=== PATIENT | male | born 1965 | race Caucasian/White ===

== ENCOUNTER 2021-10-11 11:06 | Emergency (ER) | payer OTHER, SELFPAY ==
[2021-10-11 11:38] VITALS: BP 154/92; PULSE 84; RESP 18; TEMP 36.7; O2SAT 95; BMI 44.4
[2021-10-11 11:57] LABS: MANUAL DIFF FLAG NO
[2021-10-11 11:58] LABS: Basophils Percent Auto 0.4 % (0-2); Eosinophils Absolute Auto 0.1 X10*3/uL (0.0-0.4); Eosinophils Percent Auto 0.8 % (0-4); Hematocrit 46.2 % (42.0-52.0); Imm Gran Abs Auto 0.02 X10*3/uL (0.00-0.03); Imm Gran Pct Auto 0.3 % (0.0-0.4); Lymphocytes Absolute Auto 1.4 X10*3/uL (1.2-4.9); Lymphocytes Percent Auto 18.6 % (20-40); Mean Corpuscular HGB Conc 34.6 g/dl (31.0-36.0); Mean Corpuscular Hemoglobin 32.4 pg (27.0-33.0); Mean Corpuscular Volume 93.5 fL (80.0-98.0); Mean Platelet Volume 9.3 fL (9.4-12.4); Monocytes Absolute Auto 0.6 X10*3/uL (0.1-1.2); Neutrophils Absolute Auto 5.5 x10*3/uL (2.0-8.3); Neutrophils Percent Auto 71.9 % (45-73); Platelet Count 264 X10*3/uL (160-400); Red Blood Count 4.94 X10*6/uL (4.60-5.80); Red Cell Distribution Width 12.1 % (11.0-16.0); White Blood Count 7.6 X10*3/uL (4.8-10.8)
[2021-10-11 12:15] LABS: Alanine Aminotransferase 15 U/L (0-40); Albumin Level 4.2 g/dL (3.5-5.0); Alkaline Phosphatase 90 U/L (39-117); Anion Gap 12 (12-20); Aspartate Amino Transferase 15 U/L (5-37); Bilirubin Total 1.1 mg/dL (0.0-1.0); Blood Urea Nitrogen 10 mg/dL (9-16); Calcium 9.5 mg/dL (8.4-10.2); Carbon Dioxide 28 mmol/L (22-29); Chloride 105 mmol/L (96-108); Creatinine Clr Calc Pharmacy 145.8; Estimated Glomerular Filt Rate > 60; Glucose Random 120 mg/dL (60-115); Potassium 4.2 mmol/L (3.3-5.1); Sodium 141 mmol/L (135-145)
--- NOTE | 2021-10-11 12:26 | ED_ITS ---
HPI - Abdominal Pain General Chief Complaint: Abdominal Pain Stated Complaint: Swollen prostate Time Seen by Provider: 10/11/21 12:24 Source: patient Mode of arrival: ambulatory Limitations: no limitations History of Present Illness HPI narrative: Patient unable to urinate, has pressure but cant pee. patient has not had any over the counter medications. MD elicited complaint: other (pelvic pain) Onset (ago): day(s) Pain Consistency: constant Location: RLQ, LLQ and suprapubic Severity: mild Related Data Previous Rx's Medication Instructions Recorded tamsulosin 0.4 mg capsule (Flomax) 0.4 mg PO BEDTIME #30 caps 10/11/21 Allergies Allergy/AdvReac Type Severity Reaction Status Date / Time No Known Allergies Allergy Verified 10/11/21 11:38 PMFSH Social History Social History Advance Directives: No Advance Directives Information Provided: Yes Physical Exam ED Vital Signs: Vital Signs - 24 hr 10/11/21 11:38 Temperature 98.0 F Pulse Rate 84 Respiratory Rate 18 Blood Pressure 154/92 H Pulse Oximetry 95 Oxygen Delivery Method Room Air BMI result Body Mass Index 44.4 Course Reevaluation(s) Reevaluation #1: 400ml of urine removed will dc on flomax and chambers Time: 14:33 MDM - Abdominal Pain Lab Data Result diagrams: 10/11/21 11:54 10/11/21 11:54 Labs: Lab Results 10/11/21 10/11/21 10/11/21 Range/Units 11:54 11:54 13:21 WBC 7.6 (4.8-10.8) X10*3/uL RBC 4.94 (4.60-5.80) X10*6/uL Hgb 16.0 (14.0-18.0) g/dl Hct 46.2 (42.0-52.0) % MCV 93.5 (80.0-98.0) fL MCH 32.4 (27.0-33.0) pg MCHC 34.6 (31.0-36.0) g/dl RDW 12.1 (11.0-16.0) % Plt Count 264 (160-400) X10*3/uL MPV 9.3 L (9.4-12.4) fL Immature Gran % (Auto) 0.3 (0.0-0.4) % Neut % (Auto) 71.9 (45-73) % Lymph % (Auto) 18.6 L (20-40) % [place] % (Auto) 8.0 (2-11) % Eos % (Auto) 0.8 (0-4) % Baso % (Auto) 0.4 (0-2) % Lymph # (Auto) 1.4 (1.2-4.9) X10*3/uL [place] # (Auto) 0.6 (0.1-1.2) X10*3/uL Eos # (Auto) 0.1 (0.0-0.4) X10*3/uL Baso # (Auto) 0.0 (0.0-0.2) X10*3/uL Abs Immat Gran (auto) 0.02 (0.00-0.03) X10*3/uL Absolute Neuts (auto) 5.5 (2.0-8.3) x10*3/uL Absolute Nucleated RBC 0.000 (0.0-0.012) X10*3/uL Nucleated RBC % (auto) 0.0 (0.0-0.2) /100WBC Sodium 141 (135-145) mmol/L Potassium 4.2 (3.3-5.1) mmol/L Chloride 105 (96-108) mmol/L Carbon Dioxide 28 (22-29) mmol/L Anion Gap 12 (12-20) BUN 10 (9-16) mg/dL Creatinine 0.81 (0.5-1.4) mg/dL Estim Creat Clear Calc 145.8 Estimated GFR > 60 Random Glucose 120 H (60-115) mg/dL Calcium 9.5 (8.4-10.2) mg/dL Total Bilirubin 1.1 H (0.0-1.0) mg/dL AST 15 (5-37) U/L ALT 15 (0-40) U/L Alkaline Phosphatase 90 (39-117) U/L Total Protein 7.0 (6.5-8.0) g/dL Albumin 4.2 (3.5-5.0) g/dL Urine Color YELLOW Urine Appearance CLEAR Urine pH 6.5 (5.0-8.0) Ur Specific [place] 1.015 (1.005-1.025) Urine Protein NEG (NEG-TRACE) MG/DL Urine Glucose (UA) NEG (NEG) MG/DL Urine Ketones NEG (NEG) MG/DL Urine Blood 3+ H (NEG) Urine Nitrite NEG (NEG) Ur Leukocyte Esterase NEG (NEG) Urine RBC 30-49 H (0) /HPF Urine WBC 0 (0-4) /HPF Ur Squamous Epith Cells NONE /LPF Urine Bacteria NONE /LPF Discharge Plan Discharge Clinical Impression: Acute urinary retention Patient Disposition: Home, Self-Care Instructions: Urinary Retention in Men (ED), Chambers Catheter Placement and Care (ED) Prescriptions: New tamsulosin [Flomax] 0.4 mg capsule 0.4 mg PO BEDTIME Qty: 30 0RF Referrals: Rommel Agosto MD [Physician] - 1 week
[2021-10-11] MEDS: Tamsulosin HCL 0.4 MG CAPSULE PO (12:42)
[2021-10-11 13:34] LABS: Appearance Urine CLEAR; Color Urine YELLOW; Glucose Urine UA NEG (NEG); Leukocyte Esterase Urine NEG (NEG); Nitrite Urine NEG (NEG); PH 6.5 (5.0-8.0); Specific Gravity - Urine 1.015 (1.005-1.025); UACC Culture Trigger NO; Urine Blood 3+ (NEG); Urine Ketones NEG (NEG); Urine Protein NEG (NEG-TRACE)
[2021-10-11 14:12] LABS: WBC Urine 0 /HPF (0-4)
[2021-10-11 14:13] LABS: RBC Urine 30-49 /HPF (0)
== END 2021-10-11 15:02 | disposition home or self-care (01) ==
PROVIDERS: Emergency Provider Emergency Medicine
DX: R33.9 Retention of urine, unspecified (principal); R10.2 Pelvic and perineal pain
CPT/HCPCS: 36415; 51702; 80053; 81001; 85025; 99283; 99284

== ENCOUNTER → 2021-10-20 09:36 | Outpatient (BNVA) | payer OTHER, SELFPAY | PROVIDERS: Visit Provider Urology | DX: R33.8 Other retention of urine (principal) | CPT/HCPCS: 51700; 51798 ==

== ENCOUNTER 2021-10-23 11:46 | Inpatient (IN) | payer OTHER, SELFPAY ==
--- NOTE | ~2021-10-23 | XR_ITS ---
EXAMINATION: PORTABLE CHEST 1 VIEW CLINICAL INFORMATION: chest pain . COMPARISON: No recent pertinent prior studies are available for comparison. TECHNIQUE: Portable frontal view of the chest was obtained. FINDINGS: The lungs are well expanded. No focal infiltrate, effusion, edema, or pneumothorax. Cardiac and mediastinal silhouettes are within normal limits for technique. No acute bony abnormality seen. Degenerative changes in the spine and shoulders. XR/XR chest 1V IMPRESSION: No evidence of acute disease.
--- NOTE | 2021-10-23 11:47 | ECG_ITS ---
Test Reason : chest pain Blood Pressure : / mmHG Vent. Rate : 093 BPM Atrial Rate : 093 BPM P-R Int : 160 ms QRS Dur : 102 ms QT Int : 376 ms P-R-T Axes : 060 001 041 degrees QTc Int : 467 ms Normal sinus rhythm Normal ECG No previous ECGs available Referred By: Generic ED Physician Electronically Signed By:MONICA OLSON
[2021-10-23 11:52] VITALS: BP 165/77; PULSE 93; RESP 18; TEMP 36.5; O2SAT 96; BMI 45.1
[2021-10-23 12:12] LABS: Basophils Absolute Auto 0.1 X10*3/uL (0.0-0.2); Basophils Percent Auto 0.7 % (0-2); Eosinophils Absolute Auto 0.1 X10*3/uL (0.0-0.4); Eosinophils Percent Auto 1.2 % (0-4); Hematocrit 43.3 % (42.0-52.0); Hemoglobin 15.4 g/dl (14.0-18.0); Imm Gran Abs Auto 0.04 X10*3/uL (0.00-0.03); Imm Gran Pct Auto 0.6 % (0.0-0.4); Lymphocytes Absolute Auto 1.7 X10*3/uL (1.2-4.9); Lymphocytes Percent Auto 24.2 % (20-40); MANUAL DIFF FLAG NO; Mean Corpuscular HGB Conc 35.6 g/dl (31.0-36.0); Mean Corpuscular Hemoglobin 32.9 pg (27.0-33.0); Mean Corpuscular Volume 92.5 fL (80.0-98.0); Mean Platelet Volume 9.2 fL (9.4-12.4); Monocytes Absolute Auto 0.5 X10*3/uL (0.1-1.2); Monocytes Percent Auto 7.9 % (2-11); Neutrophils Absolute Auto 4.5 x10*3/uL (2.0-8.3); Neutrophils Percent Auto 65.4 % (45-73); Platelet Count 301 X10*3/uL (160-400); Red Blood Count 4.68 X10*6/uL (4.60-5.80); Red Cell Distribution Width 11.8 % (11.0-16.0); White Blood Count 6.9 X10*3/uL (4.8-10.8)
[2021-10-23 12:31] LABS: Troponin-I High Sensitivity 47.1 ng/L (<3.5-35.0)
[2021-10-23 12:32] LABS: Alanine Aminotransferase 14 U/L (0-40); Albumin Level 4.2 g/dL (3.5-5.0); Alkaline Phosphatase 98 U/L (39-117); Anion Gap 14 (12-20); Aspartate Amino Transferase 12 U/L (5-37); Bilirubin Total 0.5 mg/dL (0.0-1.0); Blood Urea Nitrogen 11 mg/dL (9-16); Carbon Dioxide 25 mmol/L (22-29); Chloride 104 mmol/L (96-108); Creatinine Clr Calc Pharmacy 143.5; Estimated Glomerular Filt Rate > 60; Glucose Random 149 mg/dL (60-115); Potassium 3.6 mmol/L (3.3-5.1); Sodium 139 mmol/L (135-145); Total Protein 7.2 g/dL (6.5-8.0)
--- NOTE | 2021-10-23 13:58 | ECG_ITS ---
Test Reason : CHEST PAIN Blood Pressure : / mmHG Vent. Rate : 080 BPM Atrial Rate : 080 BPM P-R Int : 168 ms QRS Dur : 098 ms QT Int : 384 ms P-R-T Axes : 063 011 037 degrees QTc Int : 442 ms Normal sinus rhythm Normal ECG When compared with ECG of 23-OCT-2021 11:55, No significant change was found Referred By: Chance Carrasquillo Electronically Signed By:MONICA OLSON
--- NOTE | 2021-10-23 13:59 | ED_ITS ---
HPI - Chest Pain General Chief Complaint: Chest Pain Stated Complaint: chest pain, sweats, numb throat Time Seen by Provider: 10/23/21 13:54 Source: patient Mode of arrival: ambulatory Limitations: no limitations History of Present Illness HPI narrative: this is a 56 years old male presented to the emergency department with a chief complaint of chest pain x3 hours pain is radiated to neck ARM has history of borderline diabetes. MD complaint: chest pain Onset (ago): hour(s) (3) Timing of current episode: constant Prior episodes: No Onset: during rest Pain location: substernal Pain radiation: right arm and neck Relieving factors: nothing Context: recent illness Related Data Home Medications Medication Instructions Recorded Confirmed alprazolam 0.25 mg tablet 0.25 mg PO BEDTIME PRN Sleep 10/23/21 10/23/21 atenolol 25 mg tablet 25 mg PO DAILY 10/23/21 10/23/21 citalopram 40 mg tablet 20 mg PO BID 10/23/21 10/23/21 simvastatin 10 mg tablet 10 mg PO DAILY 10/23/21 10/23/21 Previous Rx's Medication Instructions Recorded tamsulosin 0.4 mg capsule (Flomax) 0.4 mg PO BEDTIME #30 caps 10/20/21 Allergies Allergy/AdvReac Type Severity Reaction Status Date / Time No Known Allergies Allergy Verified 10/11/21 11:38 Review of Systems ENT: Reports system reviewed and no additional complaints, except as documented Cardiovascular: Cardiovascular: Reports no additional cardiovascular complaints Neurologic: Reports system reviewed and no additional complaints, except as documented PMFSH Past Medical History [facility], LAT[facility] Narrative: borderlin DM Medical History (Updated 10/23/21 @ 15:12 by Derek Christiansen MD) Acute urinary retention Anxiety BPH (benign prostatic hyperplasia) Depression HLD (hyperlipidemia) HTN (hypertension) Obesity Panic attack Surgical History (Updated 10/23/21 @ 15:09 by Derek Christiansen MD) H/O hernia repair Social History Social History Advance Directives: No Advance Directives Information Provided: Yes Physical Exam Vital Signs: Vital Signs: Last Vital Signs Temp 98 F 10/23/21 15:01 Pulse 77 10/23/21 15:01 Resp 14 10/23/21 14:34 BP 158/80 H 10/23/21 15:01 Pulse Ox 97 10/23/21 15:01 O2 Del Method 10/23/21 15:01 BMI result Body Mass Index 45.1 Const: General: cooperative Nutritional Appearance: average body habitus Orientation/consciousness: patient oriented x3 Limitations: no limitations HEENT: Head: Yes normal to inspection Face and sinus: Yes normal facial exam Mouth: Normal oral and palatal mucosa present Throat: Yes posterior oropharynx normal Neck: Neck: Yes normal visual inspection and Yes full ROM Chest: Chest palpation & inspection: normal inspection of the chest Resp: Effort & Inspection: normal respiratory effort Auscultation: clear to auscultation bilaterally Cardio: Jugular venous distension: no JVD Palpation: normal PMI Rate: regular rate Rhythm: regular rhythm GI: Inspection: Yes normal to inspection Palpation (GI): Soft to palpation : General: Yes no CVA tenderness Back/Spine/Pelvis: Back: no CVA tenderness Neuro: General: patient oriented x3 Course Reevaluation(s) Reevaluation #1: improving,chest pain free after nitro Time: 14:14 Reevaluation #2: I discussed the case with the Cardiology on-call patient has a detectable troponin, at this point we will treat the patient for acute coronary syndrome with IV heparin case was discussed also with the hospitalist Dr. Camejo [facility] - Chest Pain Lab Data Result diagrams: 10/23/21 15:20 10/23/21 12:06 Labs: Lab Results 10/23/21 10/23/21 10/23/21 Range/Units 12:06 12:06 12:06 WBC 6.9 (4.8-10.8) X10*3/uL RBC 4.68 (4.60-5.80) X10*6/uL Hgb 15.4 (14.0-18.0) g/dl Hct 43.3 (42.0-52.0) % MCV 92.5 (80.0-98.0) fL MCH 32.9 (27.0-33.0) pg MCHC 35.6 (31.0-36.0) g/dl RDW 11.8 (11.0-16.0) % Plt Count 301 (160-400) X10*3/uL MPV 9.2 L (9.4-12.4) fL Immature Gran % (Auto) 0.6 H (0.0-0.4) % Neut % (Auto) 65.4 (45-73) % Lymph % (Auto) 24.2 (20-40) % [place] % (Auto) 7.9 (2-11) % Eos % (Auto) 1.2 (0-4) % Baso % (Auto) 0.7 (0-2) % Lymph # (Auto) 1.7 (1.2-4.9) X10*3/uL [place] # (Auto) 0.5 (0.1-1.2) X10*3/uL Eos # (Auto) 0.1 (0.0-0.4) X10*3/uL Baso # (Auto) 0.1 (0.0-0.2) X10*3/uL Abs Immat Gran (auto) 0.04 H (0.00-0.03) X10*3/uL Absolute Neuts (auto) 4.5 (2.0-8.3) x10*3/uL Absolute Nucleated RBC 0.000 (0.0-0.012) X10*3/uL Nucleated RBC % (auto) 0.0 (0.0-0.2) /100WBC PT (10.0-13.1) SEC INR (0.9-1.1) aPTT Heparin Protocol (53-77.9) SEC Sodium 139 (135-145) mmol/L Potassium 3.6 (3.3-5.1) mmol/L Chloride 104 (96-108) mmol/L Carbon Dioxide 25 (22-29) mmol/L Anion Gap 14 (12-20) BUN 11 (9-16) mg/dL Creatinine 0.83 (0.5-1.4) mg/dL Estim Creat Clear Calc 143.5 Estimated GFR > 60 Random Glucose 149 H (60-115) mg/dL Calcium 9.0 (8.4-10.2) mg/dL Total Bilirubin 0.5 (0.0-1.0) mg/dL AST 12 (5-37) U/L ALT 14 (0-40) U/L Alkaline Phosphatase 98 (39-117) U/L Troponin I High Sens 47.1 H (<3.5-35.0) ng/L Total Protein 7.2 (6.5-8.0) g/dL Albumin 4.2 (3.5-5.0) g/dL COVID-19 (YESI) (Negative) COVID-19 Clin Com 10/23/21 10/23/21 10/23/21 Range/Units 14:09 15:20 15:20 WBC 10.6 (4.8-10.8) X10*3/uL RBC 4.77 (4.60-5.80) X10*6/uL Hgb 15.3 (14.0-18.0) g/dl Hct 44.1 (42.0-52.0) % MCV 92.5 (80.0-98.0) fL MCH 32.1 (27.0-33.0) pg MCHC 34.7 (31.0-36.0) g/dl RDW 11.7 (11.0-16.0) % Plt Count 314 (160-400) X10*3/uL MPV 8.9 L (9.4-12.4) fL Immature Gran % (Auto) (0.0-0.4) % Neut % (Auto) (45-73) % Lymph % (Auto) (20-40) % [place] % (Auto) (2-11) % Eos % (Auto) (0-4) % Baso % (Auto) (0-2) % Lymph # (Auto) (1.2-4.9) X10*3/uL [place] # (Auto) (0.1-1.2) X10*3/uL Eos # (Auto) (0.0-0.4) X10*3/uL Baso # (Auto) (0.0-0.2) X10*3/uL Abs Immat Gran (auto) (0.00-0.03) X10*3/uL Absolute Neuts (auto) (2.0-8.3) x10*3/uL Absolute Nucleated RBC 0.000 (0.0-0.012) X10*3/uL Nucleated RBC % (auto) 0.0 (0.0-0.2) /100WBC PT (10.0-13.1) SEC INR (0.9-1.1) aPTT Heparin Protocol (53-77.9) SEC Sodium (135-145) mmol/L Potassium (3.3-5.1) mmol/L Chloride (96-108) mmol/L Carbon Dioxide (22-29) mmol/L Anion Gap (12-20) BUN (9-16) mg/dL Creatinine (0.5-1.4) mg/dL Estim Creat Clear Calc Estimated GFR Random Glucose (60-115) mg/dL Calcium (8.4-10.2) mg/dL Total Bilirubin (0.0-1.0) mg/dL AST (5-37) U/L ALT (0-40) U/L Alkaline Phosphatase (39-117) U/L Troponin I High Sens 77.5 H D (<3.5-35.0) ng/L Total Protein (6.5-8.0) g/dL Albumin (3.5-5.0) g/dL COVID-19 (YESI) Negative (Negative) COVID-19 Clin Com See Note 10/23/21 Range/Units 15:20 WBC (4.8-10.8) X10*3/uL RBC (4.60-5.80) X10*6/uL Hgb (14.0-18.0) g/dl Hct (42.0-52.0) % MCV (80.0-98.0) fL MCH (27.0-33.0) pg MCHC (31.0-36.0) g/dl RDW (11.0-16.0) % Plt Count (160-400) X10*3/uL MPV (9.4-12.4) fL Immature Gran % (Auto) (0.0-0.4) % Neut % (Auto) (45-73) % Lymph % (Auto) (20-40) % [place] % (Auto) (2-11) % Eos % (Auto) (0-4) % Baso % (Auto) (0-2) % Lymph # (Auto) (1.2-4.9) X10*3/uL [place] # (Auto) (0.1-1.2) X10*3/uL Eos # (Auto) (0.0-0.4) X10*3/uL Baso # (Auto) (0.0-0.2) X10*3/uL Abs Immat Gran (auto) (0.00-0.03) X10*3/uL Absolute Neuts (auto) (2.0-8.3) x10*3/uL Absolute Nucleated RBC (0.0-0.012) X10*3/uL Nucleated RBC % (auto) (0.0-0.2) /100WBC PT 11.4 (10.0-13.1) SEC INR 1.0 (0.9-1.1) aPTT Heparin Protocol 32.9 L (53-77.9) SEC Sodium (135-145) mmol/L Potassium (3.3-5.1) mmol/L Chloride (96-108) mmol/L Carbon Dioxide (22-29) mmol/L Anion Gap (12-20) BUN (9-16) mg/dL Creatinine (0.5-1.4) mg/dL Estim Creat Clear Calc Estimated GFR Random Glucose (60-115) mg/dL Calcium (8.4-10.2) mg/dL Total Bilirubin (0.0-1.0) mg/dL AST (5-37) U/L ALT (0-40) U/L Alkaline Phosphatase (39-117) U/L Troponin I High Sens (<3.5-35.0) ng/L Total Protein (6.5-8.0) g/dL Albumin (3.5-5.0) g/dL COVID-19 (YESI) (Negative) COVID-19 Clin Com ECG Data ECG #1: Pacemaker model: Normal sinus rhythm a rate [address]-T changes ECG #2: ECG interpretation date: 10/23/21 Pacemaker model: Unchanged from prior Critical Care Time Critical Care Time Critical Care Time: Yes Total Critical Care Time: 45 Attestation: IV heparin started,sl NITRO ,spoke with invoice checker,hospitalist, Discharge Plan Discharge Clinical Impression: NSTEMI (non-ST elevated myocardial infarction) Patient Disposition: Admitted As Inpatient
[2021-10-23] MEDS: Aspirin 325 MG TABLET PO (14:07)
[2021-10-23] MEDS: Nitroglycerin 0.4 MG TAB.SUBL SUBLINGUAL (14:08)
[2021-10-23 14:11] VITALS: BP 163/94; PULSE 88; RESP 15; O2SAT 97
[2021-10-23 14:34] VITALS: BP 152/84; PULSE 77; RESP 14
[2021-10-23 14:36] LABS: Troponin-I High Sensitivity 77.5 ng/L (<3.5-35.0)
[2021-10-23 15:01] VITALS: BP 158/80; PULSE 77; TEMP 36.6; O2SAT 97
--- NOTE | 2021-10-23 15:01 | P.HPHOSP_ITS ---
History of Present Illness Date of Service: 10/23/21 Chief Complaint: Chest pain 56-year-old male morbidly obese BMI of 45, history of hypertension, hyperlipidemia he has not been taking medications for these as a result of losing insurance about a month or so ago. Additional history includ depression, anxiety with panic attacks. He has no personal history of coronary artery disease not dizzy state that there is family history of coronary artery disease. He presented to the emergency room today with chest pain that started around 730 when he workup initially he thought was probably musculoskeletal in n ature related to the way he slept he rated pain at about 9/10 at a time. He took some Aleve with improvement but the pain returned just hours later and this time associated with a shortness of breath sweating nausea and prompting him to come to the emergency room. EKG showed no acute ischemic changes. 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 At the present time, he experiencing negligeable pain. Review of Systems Review of Systems: Gen: no fever Resp: no sob, no cough CV: no chest, no MORA, + leg edema GI: No n/v, no abd pain Neuro: No confusion Yes all other systems are reviewed and are negative [facility] Medical History (Updated 10/23/21 @ 15:12 by Derek Christiansen MD) Acute urinary retention Anxiety BPH (benign prostatic hyperplasia) Depression HLD (hyperlipidemia) HTN (hypertension) Obesity Panic attack Pertinent family history: fathrer, brother with cancer not sure what type Surgical History (Updated 10/23/21 @ 15:09 by Derek Christiansen MD) H/O hernia repair Social History Advance Directives: No Advance Directives Information Provided: Yes Meds Allergies Allergy/AdvReac Type Severity Reaction Status Date / Time No Known Allergies Allergy Verified 10/11/21 11:38 Active Medications: Current Medications Heparin Sodium (Porcine) (Heparin Sodium,Porcine 5,000 Unit/Ml Vial) 5,700 unit 40 unit/kg (5700 unit) IVPUSH PROTOCOL BOLUS PRN; Protocol PRN Reason: 40 unit/kg - Heparin Protocol Heparin Sodium (Porcine) (Heparin Sodium,Porcine 5,000 Unit/Ml Vial) 10,000 uni t IVPUSH PROTOCOL BOLUS PRN; Protocol PRN Reason: 80 unit/kg - Heparin Protocol Heparin Sodium/Sodium Chloride () 25,000 unit in 250 mls @ 0 mls/hr IVCONT .Q0M FITO; Protocol Nitroglycerin (Nitroglycerin 0.4 Mg Tab.Subl) 0.4 mg SUBLINGUAL Q5MX3 PRN PRN Reason: Chest Pain Last Admin: 10/23/21 14:08 Dose: 0.4 mg Pharmacy Consult (Consult Rx Perform Med Rec) 1 each MISCELLANE ONCE PRN PRN Reason: Consult order Physical Exam Vital Signs and Narrative: Vital Signs: Last Vital Signs Temp 97.7 F 10/23/21 11:52 Pulse 77 10/23/21 14:34 Resp 14 10/23/21 14:34 BP 152/84 H 10/23/21 14:34 Pulse Ox 97 10/23/21 14:11 O2 Del Method 10/23/21 14:34 BMI result Body Mass Index 45.1 Const: Other: Constitutional: Alert, in no distress, overweight. Mental Status: Oriented to person, place and time. Eyes: Pupils are equal, round and reactive to light. Ear, Nose and Throat: Oropharynx clear, mucous membranes moist. Respiratory: Clear to auscultation. No wheezing, rales or rhonchi. Cardiovascular: S1 S2 regular. No murmurs, rubs or gallops. Gastrointestinal: Abdomen soft, non-tender, non-distended. Normal bowel sounds.? Neurologic: Cranial nerves II-XII grossly intact. No focal neurological deficits. Moves all extremities spontaneously.? Skin: No rashes or lesions.? Musculoskeletal: No cyanosis or clubbing. Psychiatric: Normal mood and affect? Results Labs CBC and Chem 7: 10/23/21 12:06 10/23/21 12:06 Labs: Laboratory Results - last 24 hr 10/23/21 10/23/21 12:06 12:06 MCV 92.5 MCH 32.9 MCHC 35.6 RDW 11.8 Plt Count 301 MPV 9.2 L Immature Gran % (Auto) 0.6 H Neut % (Auto) 65.4 Lymph % (Auto) 24.2 [place] % (Auto) 7.9 Eos % (Auto) 1.2 Baso % (Auto) 0.7 Lymph # (Auto) 1.7 [place] # (Auto) 0.5 Eos # (Auto) 0.1 Baso # (Auto) 0.1 Abs Immat Gran (auto) 0.04 H Absolute Neuts (auto) 4.5 Absolute Nucleated RBC 0.000 Nucleated RBC % (auto) 0.0 Anion Gap 14 Estim Creat Clear Calc 143.5 Estimated GFR > 60 Random Glucose 149 H Calcium 9.0 Total Bilirubin 0.5 AST 12 ALT 14 Alkaline Phosphatase 98 Total Protein 7.2 Albumin 4.2 Assessment and Plan (1) NSTEMI (non-ST elevated myocardial infarction): Status: Acute Plan 56/ ma with HTN, HLD, moribit obesity here w/ chest pain, elevated troponin concerning for acute coronary syndrome--NSTEMI type Plan: #Elevate troponin/NSTEMI -IV Heparin, repeat troponin -repeat ECG in the morning -ASA, metoprolol, lipitor -cardiology consult -necessity of echo to be determined by 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 should establish with a PCP, presently doesn't have PCP admission to span at least 2 midngith for treatment of acute coronary syndrome and IV heparin Quality Stroke Does the patient have a stroke diagnosis?: No VTE Prior VTE?: No VTE Risk Level:: Medical - moderate - high VTE Device Contraindication: Treatment Not Tolerated VTE Drug Contraindication: N/A - Med Ordered
[2021-10-23 15:26] VITALS: BMI 45.9
[2021-10-23 15:26] LABS: Hematocrit 44.1 % (42.0-52.0); Hemoglobin 15.3 g/dl (14.0-18.0); Mean Corpuscular HGB Conc 34.7 g/dl (31.0-36.0); Mean Corpuscular Hemoglobin 32.1 pg (27.0-33.0); Mean Corpuscular Volume 92.5 fL (80.0-98.0); Mean Platelet Volume 8.9 fL (9.4-12.4); Platelet Count 314 X10*3/uL (160-400); Red Blood Count 4.77 X10*6/uL (4.60-5.80); Red Cell Distribution Width 11.7 % (11.0-16.0); White Blood Count 10.6 X10*3/uL (4.8-10.8)
[2021-10-23 15:38] LABS: Prothrombin Time 11.4 SEC (10.0-13.1)
[2021-10-23 15:40] LABS: PTT Heparin Drip 32.9 SEC (53-77.9)
[2021-10-23] MEDS: Metoprolol Tartrate 25 MG TABLET PO (15:45)
[2021-10-23] MEDS: Acetaminophen 325 MG TABLET 650 MG PO (15:45)
[2021-10-23] MEDS: Heparin Sodium,Porcine 5,000 UNIT/ML VIAL 4000 UNIT IVPUSH (15:45)
[2021-10-23] MEDS: Heparin Sodium,Porcine/1/2NS 25,000 UNIT/250 ML IV.SOLN 10 UNIT IVCONT (15:47)
[2021-10-23 15:51] LABS: COVID-19 Test Negative (Negative)
--- NOTE | 2021-10-23 15:52 | PHA.MEDREC ---
MED REC COMPLETE, PATIENT HAS RUN OUT OF HIS MEDICATIONS DUE TO LOSING INSURANCE. HE HAS NOT BEEN TAKING MEDICATIONS FOR AT LEAST A MONTH. HE ALSO THINKS HE WAS ON A DIURETIC BUT CANNOT REMEMBER NAME AND [facility] DID NOT HAVE ON FILE Pharmacy Consult ? Medication Reconciliation Pharmacy has completed the medication reconciliation.
[2021-10-23 16:52] LABS: Cholesterol 167 mg/dL; HDL Cholesterol 42 mg/dL; LDL Cholesterol Calculated 114 mg/dl; Triglycerides 59 mg/dL
[2021-10-23 17:18] VITALS: BP 165/94; PULSE 78; RESP 18; O2SAT 96
[2021-10-23 19:05] LABS: Troponin-I High Sensitivity 719.1 ng/L (<3.5-35.0)
--- NOTE | 2021-10-23 19:29 | PM.EVENT ---
Event Note Date of Service: 10/23/21 Event Note: NSTEMI: Patient follow-up troponin elevated from 77-[address] Acevedo, no transfer recommended this time as patient is currently chest pain-free. Will continue to monitor closely
--- NOTE | 2021-10-23 19:58 | PC.NURSE ---
report received from Skylar FORD. pt sitting up on stretcher eating dinner. pt has no current complaints. states chest pain has subsided. call cervantes within reach. will continue to monitor
[2021-10-23 21:15] VITALS: BP 111/55; PULSE 76; RESP 17; O2SAT 98
[2021-10-23 22:30] LABS: PTT Heparin Drip 38.1 SEC (53-77.9)
[2021-10-23] MEDS: Heparin Sodium,Porcine 5,000 UNIT/ML VIAL 5800 UNIT IVPUSH (22:37)
--- NOTE | 2021-10-23 22:50 | PC.NURSE ---
6 hr ptt during heparin infusion is 38.1. 5800 unit heparin IV bolus given, drip rate titrated up to 8.88 u/kg per protocol orders. next ptt to be drawn at 0430 on 10/24/21.
[2021-10-24 01:39] VITALS: BP 189/106; PULSE 77; RESP 18; TEMP 36.8; O2SAT 97
[2021-10-24 04:00] VITALS: BP 157/95; PULSE 79; RESP 18; TEMP 37.1; O2SAT 95
[2021-10-24] MEDS: Melatonin 3 MG TABLET 6 MG PO (04:37)
[2021-10-24 05:11] LABS: PTT Heparin Drip 47.3 SEC (53-77.9)
[2021-10-24] MEDS: Heparin Sodium,Porcine 5,000 UNIT/ML VIAL 5800 UNIT IVPUSH (05:30)
--- NOTE | 2021-10-24 07:00 | ECG_ITS ---
Test Reason : nstemi Blood Pressure : / mmHG Vent. Rate : 075 BPM Atrial Rate : 075 BPM P-R Int : 164 ms QRS Dur : 100 ms QT Int : 400 ms P-R-T Axes : 026 019 035 degrees QTc Int : 446 ms Normal sinus rhythm Normal ECG When compared with ECG of 23-OCT-2021 13:54, No significant change was found Referred By: Derek [facility] Electronically Signed By:MONICA OLSON
--- NOTE | 2021-10-24 07:00 | CA_ITS ---
Transthoracic Echocardiogram Patient (Last, First, Middle): Espinoza Palmer, Gender: Male Date of : 1965 Age: 56 Procedure Date: 10/24/2021 Procedure Type: Transthoracic Echocardiogram Location: [facility] [place] Height: 177.8 cm Weight: 145.15 kg BSA: 2.55 m2 Heart Rate: 76 bpm BP: 165 / 85 mmHg Inspector Shells: SB Referring MD: Drake Osborne MD Symptoms: NSTEMI Study Quality: Technically Difficult/ BSA/Contrast ECG Rhythm: Sinus Conclusions: - The left ventricular systolic function is normal. The calculated ejection fraction is 66% by biplane method. - There is no evidence of regional wall motion abnormalities. - No obvious valvular pathology seen on this study. Findings Procedure Information Contrast agent, definity, is being given per protocol without apparent complications. Left Ventricle Normal left ventricular cavity size. There is normal left ventricular wall thickness. The left ventricular systolic function is normal. The calculated ejection fraction is 66% by biplane method. There is no evidence of regional wall motion abnormalities. Diastolic function is normal for age. Right Ventricle Normal right ventricular cavity size and systolic function. Atria Both atria are normal in size. Aortic Valve There is a normal trileaflet aortic valve. There is no aortic valve stenosis. There is no aortic valve regurgitation. Mitral Valve The mitral valve appears normal. There is no mitral valve regurgitation. There is no mitral valve stenosis. Pulmonic Valve The pulmonic valve is likely normal. Tricuspid Valve There is trace tricuspid valve regurgitation. Tricuspid regurgitation envelope is inadequate for calculation of right ventricular systolic pressure. Great Vessels The asc aorta is normal in size. Venous The inferior vena cava is dilated and collapses greater than 50% with inspiration. Pericardium/Pleural There is no evidence of pericardial effusion. Prior Study Comparison No prior study available for comparison. Recommendations, Care & Conclusions No obvious valvular pathology seen on this study. Measurements 2D Linear Measurements IVSd: 0.91 0.6-0.9/0.6-1.0 cm LVIDd: 5.35 3.9-5.3/4.2-5.9 cm LVIDd Index: 2.10 2.4-3.2/2.2-3.1 cm/m2 LVIDs: 3.43 2.0-3.6 cm LVPWd: 0.86 0.7-1.1 cm LA Diam: 4.00 2.7-3.8/3.0-4.0 cm LAIDs Index: 1.57 1.5-2.3 cm/m2 LV Mass: 216.28 67-162/88-224 g LV Mass Index: 84.82 43-95/49-115 g/m2 LVOT Diam: 2.40 3.0+(-)1.3 cm 2D Systolic Function EF 4C: 56.00 >55% EF 2C: 74.50 >55% EF BiP: 65.60 >55% Mitral Valve MV Pk E: 0.74 MV PK A: 0.60 MV Decel Time: 136.00 E/A: 1.20 E'Lateral: 9.46 E'Medial: 8.49 E/E' Med: 8.70 E/E' Lat: 7.80 PHT: 40.00 MVA PHT: 5.50 Decel [place]: 5.39 Aortic Valve AoV Pk Jac: 1.15 AoV Mn Jac: 0.91 AoV VTI: 0.28 AoV Pk Grad: 5.00 Aov Mn Grad: 4.00 BOAZ Cont.VTI: 3.28 LVOT LVOT Pk Jac: 0.88 LVOT Mn Jac: 0.70 LVOT VTI: 0.20 LVOT Pk Grad: 3.00 LVOT Mn Grad: 2.00 LVOT Diam: 2.40 LVOT Area: 4.52 Diastolic Function MV Pk E: 0.74 MV Pk A: 0.60 E/A: 1.20 E'Medial: 8.49 E/E' Med: 8.70 E' Laterial: 9.46 E/E' Lat: 7.80 Right Ventricle TAPSE (mm): 24.20 TVS' Jac: 13.50 Tricuspid Valve RA Press: 8.00 Great Vessels Aorta Sinus of Valsalva: 3.10 2.0-3.5 cm Ao Asc: 3.60 2.1-3.4 cm Pulmonary Veins Pulm Vein S/D 1.60 Pulmonary Valve PV Pk Jac: 1.07 Peak PV Grad: 5.00 Updated in Other Vendor System with Status of Final Liu Mauricio MD electronically signed on 10/24/2021 4:18:50 PM with status of Final
[2021-10-24 07:05] LABS: INTERNATIONAL NORM RATIO 1.1 (0.9-1.1); Prothrombin Time 12.3 SEC (10.0-13.1)
[2021-10-24 07:16] LABS: Hematocrit 43.9 % (42.0-52.0); Hemoglobin 15.2 g/dl (14.0-18.0); Mean Corpuscular HGB Conc 34.6 g/dl (31.0-36.0); Mean Corpuscular Hemoglobin 32.2 pg (27.0-33.0); Mean Platelet Volume 9.6 fL (9.4-12.4); Platelet Count 338 X10*3/uL (160-400); Red Blood Count 4.72 X10*6/uL (4.60-5.80); Red Cell Distribution Width 11.9 % (11.0-16.0); White Blood Count 10.9 X10*3/uL (4.8-10.8)
[2021-10-24 08:00] VITALS: BP 165/81; PULSE 73; RESP 20; TEMP 36.2; O2SAT 97
[2021-10-24 08:40] LABS: Estimated Average Glucose 108 mg/dL; Hemoglobin A1c % 5.4 %
[2021-10-24] MEDS: 0.9 % Sodium Chloride Flush 3 ML SYRINGE IVFLUSH (09:13)
[2021-10-24] MEDS: Aspirin 81 MG TAB.CHEW PO (09:14)
[2021-10-24] MEDS: Metoprolol Tartrate 25 MG TABLET PO (09:14)
--- NOTE | 2021-10-24 09:37 | P.CONCA_ITS ---
History of Present Illness History of Present Illness Date of Service: 10/24/21 Chief complaint: NSTEMI Narrative: This is a cardiology consultation regarding chest pain and elevated troponins. Patient does not have any known coronary disease myocardial infarction. He is morbidly obese. Listed to have hypertension and lipids. Due to lack of insurance, has not taken his meds for the last few weeks. Yesterday he developed a discomfort in the substernal area and that radiated to the back. Additionally, discomfort in the jaw as well. Overall, sounding anginal. Presented to the ER and he received sublingual nitroglycerin. After that, pain resolved completely. He is now totally pain free. When he had the chest pain, he also felt some shortness of breath. No similar episodes in the past. Troponins are elevated suggesting non ST elevation myocardial infarction. Currently, completely asymptomatic. Review of Systems Review of Systems: Yes all other systems are reviewed and are negative Constitutional: Constitutional: Reports as per HPI Eyes: Eyes: Reports as per HPI ENT: Reports as per HPI Cardiovascular: Cardiovascular: Reports as per HPI, Denies acrocyanosis, Denies cool extremities, Reports chest pain, Denies leg edema, Denies lightheadedness, Denies palpitations and Reports dyspnea Respiratory: Respiratory: Reports as per HPI, Reports no additional respiratory complaints and Reports dyspnea Gastrointestinal: Gastrointestinal: Reports as per HPI and Reports no additional gastrointestinal complaints Genitourinary: Genitourinary: Reports no additional male genitourinary complaints and Reports as per HPI Musculoskeletal: Musculoskeletal: Reports no additional musculoskeletal complaints and Reports as per HPI Integumentary/Breasts: Skin/Breast: Reports system reviewed and no additional complaints, except as docu Neurologic: Reports system reviewed and no additional complaints, except as documented and Reports as per HPI Psychiatric: Psychiatric: Reports no additional psychiatric complaints and Reports as per HPI Endocrine: Endocrine: Reports no additional endocrine complaints, Reports as per HPI and Denies palpitations Hematologic/Lymphatic: Hematologic/Lymphatic: Reports no additional hematologic/lymphatic complaints and Reports as per HPI Allergic/Immunologic: Allergic/Immunologic: Reports no additional allergic/immunologic complaints and Reports as per HPI [facility] Past Medical History Medical History (Updated 10/23/21 @ 15:12 by Derek Christiansen MD) Acute urinary retention Anxiety BPH (benign prostatic hyperplasia) Depression HLD (hyperlipidemia) HTN (hypertension) Obesity Panic attack Family History Family History (Updated 10/24/21 @ 09:40 by Liu Mauricio MD) Mother CAD (coronary artery disease) Maternal Uncle CAD (coronary artery disease) Surgical History Surgical History (Updated 10/23/21 @ 15:09 by Derek Christiansen MD) H/O hernia repair Social History Social History Household Members: Spouse, Family and Children Housing: House Do you presently have visiting nurse or other home services: No Patient Tobacco Use Status: Never used Tobacco Use of substances other than those prescribed or required for medical reasons: Yes Substance Use Type: Marijuana Substance Use Frequency: Occasionally Any prior treatment program specific to substance use: No Have you been hit, kicked, punched, or otherwise hurt by someone within the past year? If so, by whom?: No Do you feel safe in your current relationship?: Yes Is there a partner from a previous relationship who is making you feel unsafe now?: No Are you made to feel afraid or neglected: No Advance Directives: No Advance Directives Information Provided: Yes Do you have thoughts of harming others: None Do you have a plan to hurt others: No Plan Recently lost weight without trying: No Eating poorly because of decreased appetite: No Nutrition Risks: No Nutritional Risk Poor oral hygiene: No Meds Allergies Allergy/AdvReac Type Severity Reaction Status Date / Time No Known Allergies Allergy Verified 10/11/21 11:38 Active Medications: Current Medications Acetaminophen (Acetaminophen 325 Mg Tablet) 650 mg PO Q6H PRN PRN Reason: Pain, Mild (Pain Scale 1-3) Last Admin: 10/23/21 15:45 Dose: 650 mg Aspirin (Aspirin 81 Mg Tab.Chew) 81 mg PO DAILY FITO Last Admin: 10/24/21 09:14 Dose: 81 mg Atorvastatin Calcium (Atorvastatin Calcium 80 Mg Tablet) 80 mg PO BEDTIME [facility] Heparin Sodium (Porcine) (Heparin Sodium,Porcine 5,000 Unit/Ml Vial) 5,800 unit 40 unit/kg (5800 unit) IVPUSH PROTOCOL BOLUS PRN; Protocol PRN Reason: 40 unit/kg - Heparin Protocol Last Admin: 10/24/21 05:30 Dose: 5,800 unit Heparin Sodium (Porcine) (Heparin Sodium,Porcine 5,000 Unit/Ml Vial) 10,000 unit IVPUSH PROTOCOL BOLUS PRN; Protocol PRN Reason: 80 unit/kg - Heparin Protocol Heparin Sodium/Sodium Chloride () 25,000 unit in 250 mls @ 0 mls/hr IVCONT .Q0M [facility]; Protocol Last Titration: 10/24/21 05:31 Dose: 10.88 units/kg/hr, 15.81 mls/hr Magnesium Hydroxide (Milk Of Magnesia 30 Ml Oral.Susp) 30 ml PO DAILY PRN PRN Reason: Constipation Melatonin (Melatonin 3 Mg Tablet) 6 mg PO BEDTIME PRN PRN Reason: Insomnia Last Admin: 10/24/21 04:37 Dose: 6 mg Metoprolol Tartrate (Metoprolol Tartrate 25 Mg Tablet) 25 mg PO BID [facility]; Protocol Last Admin: 10/24/21 09:14 Dose: 25 mg Morphine Sulfate (Morphine Sulfate 4 Mg/Ml Cartridge) 2 mg IVPUSH Q4H PRN; Protocol PRN Reason: Pain, Severe (Pain Scale 7-10) Nitroglycerin (Nitroglycerin 0.4 Mg Tab.Subl) 0.4 mg SUBLINGUAL Q5MX3 PRN PRN Reason: Chest Pain Last Admin: 10/23/21 14:08 Dose: 0.4 mg Nitroglycerin (Nitroglycerin 0.4 Mg Tab.Subl) 0.4 mg SUBLINGUAL Q5MX3 PRN PRN Reason: Chest Pain Pharmacy Consult (Consult Rx Perform Med Rec) 1 each MISCELLANE ONCE PRN PRN Reason: Consult order Sodium Chloride (0.9 % Sodium Chloride Flush 3 Ml Syringe) 3 ml IVFLUSH [facility] Last Admin: 10/24/21 09:13 Dose: 3 ml Home Medications Medication Instructions Recorded Confirmed Last Taken Type alprazolam 0.25 mg tablet 0.25 mg PO BEDTIME PRN Sleep 10/23/21 10/23/21 Unknown History atenolol 25 mg tablet 25 mg PO DAILY 10/23/21 10/23/21 Unknown History citalopram 40 mg tablet 20 mg PO BID 10/23/21 10/23/21 Unknown History simvastatin 10 mg tablet 10 mg PO DAILY 10/23/21 10/23/21 Unknown History Physical Exam Vital Signs: Vital Signs: Last Vital Signs Temp 97.1 F 10/24/21 08:00 Pulse 73 10/24/21 08:00 Resp 20 10/24/21 08:00 BP 165/81 H 10/24/21 08:00 Pulse Ox 97 10/24/21 08:00 O2 Del Method 10/24/21 08:00 BMI result Body Mass Index 45.9 Const: General: comfortable and no acute distress Orientation/consciousness: patient oriented x3 HEENT: Other: Unremarkable Head: Yes normal to inspection Neck: Neck: Yes normal visual inspection Chest: Chest palpation & inspection: normal inspection of the chest Resp: Auscultation: clear to auscultation bilaterally Cardio: Palpation: normal PMI Heart sounds: S1 normal heart sound present, S2 normal heart sound present, no gallops, no murmurs and no rubs GI: Palpation (GI): Soft to palpation Back/Spine/Pelvis: Other: unremarkable Skin: General skin exam: no rashes or lesions noted Neuro: General: patient oriented x3 Extrem: General: Yes normal to inspection Psych: Mental Status: mental status grossly normal Objective Labs and Meds Result diagrams: 10/24/21 06:21 10/23/21 12:06 Lab results: Laboratory Results - last 24 hr 10/23/21 10/23/21 10/23/21 12:06 12:06 12:06 WBC 6.9 RBC 4.68 Hgb 15.4 Hct 43.3 MCV 92.5 MCH 32.9 MCHC 35.6 RDW 11.8 Plt Count 301 MPV 9.2 L Immature Gran % (Auto) 0.6 H Neut % (Auto) 65.4 Lymph % (Auto) 24.2 [place] % (Auto) 7.9 Eos % (Auto) 1.2 Baso % (Auto) 0.7 Lymph # (Auto) 1.7 [place] # (Auto) 0.5 Eos # (Auto) 0.1 Baso # (Auto) 0.1 Abs Immat Gran (auto) 0.04 H Absolute Neuts (auto) 4.5 Absolute Nucleated RBC 0.000 Nucleated RBC % (auto) 0.0 PT INR aPTT Heparin Protocol Sodium 139 Potassium 3.6 Chloride 104 Carbon Dioxide 25 Anion Gap 14 BUN 11 Creatinine 0.83 Estim Creat Clear Calc 143.5 Estimated GFR > 60 Random Glucose 149 H Estimat Average Glucose Hemoglobin A1c % Calcium 9.0 Total Bilirubin 0.5 AST 12 ALT 14 Alkaline Phosphatase 98 Troponin I High Sens 47.1 H Total Protein 7.2 Albumin 4.2 Triglycerides Cholesterol LDL Cholesterol, Calc HDL Cholesterol COVID-19 (YESI) COVID-19 Clin Com 10/23/21 10/23/21 10/23/21 14:09 15:20 15:20 WBC 10.6 RBC 4.77 Hgb 15.3 Hct 44.1 MCV 92.5 MCH 32.1 MCHC 34.7 RDW 11.7 Plt Count 314 MPV 8.9 L Immature Gran % (Auto) Neut % (Auto) Lymph % (Auto) [place] % (Auto) Eos % (Auto) Baso % (Auto) Lymph # (Auto) [place] # (Auto) Eos # (Auto) Baso # (Auto) Abs Immat Gran (auto) Absolute Neuts (auto) Absolute Nucleated RBC 0.000 Nucleated RBC % (auto) 0.0 PT INR aPTT Heparin Protocol Sodium Potassium Chloride Carbon Dioxide Anion Gap BUN Creatinine Estim Creat Clear Calc Estimated GFR Random Glucose Estimat Average Glucose Hemoglobin A1c % Calcium Total Bilirubin AST ALT Alkaline Phosphatase Troponin I High Sens 77.5 H D Total Protein Albumin Triglycerides Cholesterol LDL Cholesterol, Calc HDL Cholesterol COVID-19 (YESI) Negative COVID-19 Clin Com See Note 10/23/21 10/23/21 10/23/21 15:20 16:19 18:33 WBC RBC Hgb Hct MCV MCH MCHC RDW Plt Count MPV Immature Gran % (Auto) Neut % (Auto) Lymph % (Auto) [place] % (Auto) Eos % (Auto) Baso % (Auto) Lymph # (Auto) [place] # (Auto) Eos # (Auto) Baso # (Auto) Abs Immat Gran (auto) Absolute Neuts (auto) Absolute Nucleated RBC Nucleated RBC % (auto) PT 11.4 INR 1.0 aPTT Heparin Protocol 32.9 L Sodium Potassium Chloride Carbon Dioxide Anion Gap BUN Creatinine Estim Creat Clear Calc Estimated GFR Random Glucose Estimat Average Glucose Hemoglobin A1c % Calcium Total Bilirubin AST ALT Alkaline Phosphatase Troponin I High Sens 719.1 H* D Total Protein Albumin Triglycerides 59 Cholesterol 167 LDL Cholesterol, Calc 114 HDL Cholesterol 42 COVID-19 (YESI) COVID-19 Clin Com 10/23/21 10/24/21 10/24/21 22:03 04:57 06:21 WBC 10.9 H RBC 4.72 Hgb 15.2 Hct 43.9 MCV 93.0 MCH 32.2 MCHC 34.6 RDW 11.9 Plt Count 338 MPV 9.6 Immature Gran % (Auto) Neut % (Auto) Lymph % (Auto) [place] % (Auto) Eos % (Auto) Baso % (Auto) Lymph # (Auto) [place] # (Auto) Eos # (Auto) Baso # (Auto) Abs Immat Gran (auto) Absolute Neuts (auto) Absolute Nucleated RBC 0.000 Nucleated RBC % (auto) 0.0 PT INR aPTT Heparin Protocol 38.1 L 47.3 L D Sodium Potassium Chloride Carbon Dioxide Anion Gap BUN Creatinine Estim Creat Clear Calc Estimated GFR Random Glucose Estimat Average Glucose Hemoglobin A1c % Calcium Total Bilirubin AST ALT Alkaline Phosphatase Troponin I High Sens Total Protein Albumin Triglycerides Cholesterol LDL Cholesterol, Calc HDL Cholesterol COVID-19 (YESI) COVID-19 Education Everytime Com 10/24/21 10/24/21 06:21 08:24 WBC RBC Hgb Hct MCV MCH MCHC RDW Plt Count MPV Immature Gran % (Auto) Neut % (Auto) Lymph % (Auto) [place] % (Auto) Eos % (Auto) Baso % (Auto) Lymph # (Auto) [place] # (Auto) Eos # (Auto) Baso # (Auto) Abs Immat Gran (auto) Absolute Neuts (auto) Absolute Nucleated RBC Nucleated RBC % (auto) PT 12.3 INR 1.1 aPTT Heparin Protocol Sodium Potassium Chloride Carbon Dioxide Anion Gap BUN Creatinine Estim Creat Clear Calc Estimated GFR Random Glucose Estimat Average Glucose 108 Hemoglobin A1c % 5.4 Calcium Total Bilirubin AST ALT Alkaline Phosphatase Troponin I High Sens Total Protein Albumin Triglycerides Cholesterol LDL Cholesterol, Calc HDL Cholesterol COVID-19 (YESI) COVID-19 Clin Com ECG Interpretation: EKG with sinus rhythm at 75/Min; no significant ST-T changes and otherwise unremarkable. Imaging Radiologist's impression: Impressions Chest X-Ray 10/23/21 14:55 IMPRESSION: No evidence of acute disease. Assessment and Plan (1) NSTEMI (non-ST elevated myocardial infarction): Status: Acute Plan High sensitivity troponins are 47, 77 and 719. EKG without any clear ischemic changes. Chest x-ray reported to have no acute disease. Overall, symptoms as well as elevated troponins suggestive of non ST elevation myocardial infarction. Discussed about this diagnosis with the patient and sister. Currently on IV heparin drip, aspirin, beta-blockers and high-dose statins. Blood pressure is on the higher side and hence we can add some amlodipine as well. He needs cardiac catheterization I discussed about the indications as well as the actual procedure itself and possible findings including single-vessel multivessel disease, options including PCI versus CABG among others. They und erstand the procedure and are willing to proceed. Hence we will call [facility] for bed and transfer him. Procedures Date of Service Date of Service: 10/24/21
--- NOTE | 2021-10-24 10:35 | P.DS_ITS ---
DS: Providers Provider Date of Service: 10/24/21 Date of admission: 10/23/21 15:26 Date of discharge: 10/24/21 Primary care physician: None Physician Consults: 10/24/21 07:41 Consult to Cardiology Routine Consulting Provider: Liu Mauricio Reason for consultation: nstemi Has provider been notified: No DS: Diagnosis Discharge Diagnosis (1) NSTEMI (non-ST elevated myocardial infarction): Status: Acute (2) Morbid obesity: Status: Acute (3) Hypertension: Status: Acute DS: Summary Hospital Course Hospital Course: from admission H+P by hospitalist Derek Christiansen, 10/23/21: 56-year-old male morbidly obese BMI of 45, history of hypertension, hyperlipidemia he has not been taking medications for these as a result of losing insurance about a month or so ago.? Additional? history includ depression, anxiety with panic attacks.? He has no personal history of coronary artery disease not dizzy state that there is family history of coronary artery disease.? He presented to the emergency room today with chest pain that started around 730 when he workup initially he thought was probably musculoskeletal in nature related to the way he slept he rated pain at about 9/10 at a time.? He took some Aleve with improvement but the pain returned just hours later and this time associated with a shortness of breath sweating nausea and prompting him to come to the emergency room.? EKG showed no acute ischemic changes.? Initial troponin I level was 47 and the repeat 2 hours later was 77 these findings were discussed with Dr. Acevedo critical care specialist and recommends? anticoagulation and admission.? At the present time, he experiencing negligeable pain. The patient was admitted to the [facility]. He was treated with aspirin, high- intensity statin, beta-clarence, and heparin infusion. He did not have recurrent chest pain, but high-sensitivity troponin-I increased to 719. Cardiology was consulted and he was transferred to [facility] for cardiac catheterization. Amlodipine was added for BP contrl. Time Spent with Patient Time attestation: Total time spent providing and/or coordinating discharge services: Discharge coordination time: Greater than 30 minutes Quality: Safe Use of Opioids Does Pt have an Active Cancer Diagnosis on the Problem List?: No Quality: Stroke Does the patient have a stroke diagnosis?: No Physical Exam Vital Signs: Vital Signs: Last Vital Signs Temp 97.1 F 10/24/21 08:00 Pulse 73 10/24/21 08:00 Resp 20 10/24/21 08:00 BP 165/81 H 10/24/21 08:00 Pulse Ox 97 10/24/21 08:00 O2 Del Method 10/24/21 08:00 BMI result Body Mass Index 45.9 Gen: in no acute distress HEENT: sclera anicteric, moist mucus membranes Neck: supple Lungs: clear to auscultation bilaterally Heart: regular rate and rhythm, no murmurs Abd: soft, non-tender, non-distended, obese Ext: no edema Skin: warm/well-perfused Neuro: alert and oriented x3, no focal findings Psych: appropriate affect DS: Data Data Completed and Pending Completed studies during hospitalization [Text1]: Laboratory Results WBC 10.9 X10*3/uL (4.8-10.8) H 10/24/21 06:21 RBC 4.72 X10*6/uL (4.60-5.80) 10/24/21 06:21 Hgb 15.2 g/dl (14.0-18.0) 10/24/21 06:21 Hct 43.9 % (42.0-52.0) 10/24/21 06:21 MCV 93.0 fL (80.0-98.0) 10/24/21 06:21 MCH 32.2 pg (27.0-33.0) 10/24/21 06:21 MCHC 34.6 g/dl (31.0-36.0) 10/24/21 06:21 RDW 11.9 % (11.0-16.0) 10/24/21 06:21 Plt Count 338 X10*3/uL (160-400) 10/24/21 06:21 MPV 9.6 fL (9.4-12.4) 10/24/21 06:21 Immature Gran % (Auto) 0.6 % (0.0-0.4) H 10/23/21 12:06 Neut % (Auto) 65.4 % (45-73) 10/23/21 12:06 Lymph % (Auto) 24.2 % (20-40) 10/23/21 12:06 [place] % (Auto) 7.9 % (2-11) 10/23/21 12:06 Eos % (Auto) 1.2 % (0-4) 10/23/21 12:06 Baso % (Auto) 0.7 % (0-2) 10/23/21 12:06 Lymph # (Auto) 1.7 X10*3/uL (1.2-4.9) 10/23/21 12:06 [place] # (Auto) 0.5 X10*3/uL (0.1-1.2) 10/23/21 12:06 Eos # (Auto) 0.1 X10*3/uL (0.0-0.4) 10/23/21 12:06 Baso # (Auto) 0.1 X10*3/uL (0.0-0.2) 10/23/21 12:06 Abs Immat Gran (auto) 0.04 X10*3/uL (0.00-0.03) H 10/23/21 12:06 Absolute Neuts (auto) 4.5 x10*3/uL (2.0-8.3) 10/23/21 12:06 Absolute Nucleated RBC 0.000 X10*3/uL (0.0-0.012) 10/24/21 06:21 Nucleated RBC % (auto) 0.0 /100WBC (0.0-0.2) 10/24/21 06:21 PT 12.3 SEC (10.0-13.1) 10/24/21 06:21 INR 1.1 (0.9-1.1) 10/24/21 06:21 aPTT Heparin Protocol 47.3 SEC (53-77.9) L D 10/24/21 04:57 Sodium 139 mmol/L (135-145) 10/23/21 12:06 Potassium 3.6 mmol/L (3.3-5.1) 10/23/21 12:06 Chloride 104 mmol/L (96-108) 10/23/21 12:06 Carbon Dioxide 25 mmol/L (22-29) 10/23/21 12:06 Anion Gap 14 (12-20) 10/23/21 12:06 BUN 11 mg/dL (9-16) 10/23/21 12:06 Creatinine 0.83 mg/dL (0.5-1.4) 10/23/21 12:06 Estim Creat Clear Calc 143.5 10/23/21 12:06 Estimated GFR > 60 10/23/21 12:06 Random Glucose 149 mg/dL (60-115) H 10/23/21 12:06 Estimat Average Glucose 108 mg/dL 10/24/21 08:24 Hemoglobin A1c % 5.4 % 10/24/21 08:24 Calcium 9.0 mg/dL (8.4-10.2) 10/23/21 12:06 Total Bilirubin 0.5 mg/dL (0.0-1.0) 10/23/21 12:06 AST 12 U/L (5-37) 10/23/21 12:06 ALT 14 U/L (0-40) 10/23/21 12:06 Alkaline Phosphatase 98 U/L (39-117) 10/23/21 12:06 Troponin I High Sens 719.1 ng/L (<3.5-35.0) H* D 10/23/21 18:33 Total Protein 7.2 g/dL (6.5-8.0) 10/23/21 12:06 Albumin 4.2 g/dL (3.5-5.0) 10/23/21 12:06 Triglycerides 59 mg/dL 10/23/21 16:19 Cholesterol 167 mg/dL 10/23/21 16:19 LDL Cholesterol, Calc 114 mg/dl 10/23/21 16:19 HDL Cholesterol 42 mg/dL 10/23/21 16:19 COVID-19 (YESI) Negative (Negative) 10/23/21 15:20 COVID-19 Clin Com See Note 10/23/21 15:20 Impressions Chest X-Ray 10/23/21 14:55 IMPRESSION: No evidence of acute disease. Discharge Plan Discharge Patient Disposition: Xfer Acute Care Hospital Discharge Diagnosis: NSTEMI Referrals: Physician,None [Primary Care Provider] - 1 Week Discharge Medications: New atorvastatin 80 mg Tablet 80 mg PO BEDTIME Qty: 1 0RF amlodipine 5 mg Tablet 5 mg PO DAILY Qty: 1 0RF Protocol: Hold for SBP< HOLD for SBP < : 90 nitroglycerin [Nitrostat] 0.4 mg Tablet, Sublingual 0.4 mg sublingual Q5MX3 PRN (Reason: Chest Pain) Qty: 1 0RF aspirin 81 mg Tablet,Chewable 81 mg PO DAILY Qty: 1 0RF heparin (porcine) 5,000 unit/mL Solution 10,000 unit IVPUSH PROTOCOL BOLUS PRN (Reason: 80 Unit/Kg - Heparin Protocol) Qty: 1 0RF heparin (porcine) 5,000 unit/mL Solution 5,800 unit IVPUSH PROTOCOL BOLUS PRN (Reason: 40 Unit/Kg - Heparin Protocol) Qty: 1 0RF metoprolol tartrate 25 mg Tablet 25 mg PO BID Qty: 1 0RF Protocol: Hold for SBP/HR < HOLD for SBP < : 90 HOLD for HR < : 60 heparin(porcine) in 0.45% NaCl 25,000 unit/250 mL Parenteral Solution 25,000 unit continuous IV infusion .Q0M Qty: 1 0RF Continued citalopram 40 mg Tablet 20 mg PO BID alprazolam 0.25 mg Tablet 0.25 mg PO BEDTIME PRN (Reason: Sleep) tamsulosin [Flomax] 0.4 mg capsule 0.4 mg PO BEDTIME Qty: 30 0RF Discontinued simvastatin 10 mg Tablet 10 mg PO DAILY atenolol 25 mg Tablet 25 mg PO DAILY Discharge Orders: Discharge Order (Routine); Ordered 10/24/21 Ordered By: Drake Osborne Diet: Low salt diet Activity on Discharge: As tolerated Stand Alone Forms: Patient Portal Discharge page Care Plan Goals: cardiac health Health Concerns: NSTEMI Plan of Treatment: transfer to [facility] [place] for cardiac cathteterization referrals to Primary Care and Cardiology Assessment: See Discharge Summary
[2021-10-24] MEDS: amLODIPine Besylate 5 MG TABLET PO (11:18)
[2021-10-24 11:20] VITALS: BP 172/92; PULSE 72; RESP 20; TEMP 36.2; O2SAT 97
--- NOTE | 2021-10-24 11:29 | MHC.CM.PN ---
Male 56 DX NSTEMI Lives w . Independent all functional mobility. No PCP. [facility] [place] provided for selection of new PCP. A HCP was documented. The original was given to the patient. A copy was placed on the chart. Another copy was sent to Medical records. A 3rd copy was placed in the patients DC envelope [place] [facility] [place] [facility] [place].
[2021-10-24 12:21] LABS: PTT Heparin Drip 35.9 SEC (53-77.9)
[2021-10-24] MEDS: Heparin Sodium,Porcine/1/2NS 25,000 UNIT/250 ML IV.SOLN 21.62 UNIT IVCONT (12:42)
[2021-10-24] MEDS: Heparin Sodium,Porcine 5,000 UNIT/ML VIAL 10000 UNIT IVPUSH (12:42)
== END 2021-10-24 13:39 | disposition short-term general hospital (02) | DRG 281 ==
LOC: HO.ED 15:03 → HO.EDOVER 15:32 → HO.IMC 10-24 00:23
PROVIDERS: Hospitalist; Admitting Provider Internal Medicine; Emergency Provider Emergency Medicine; Visit Provider Family Medicine
DX: I21.4 Non-ST elevation (NSTEMI) myocardial infarction (principal); Z68.42 Body mass index [BMI] 45.0-49.9, adult; N40.1 Benign prostatic hyperplasia with lower urinary tract symptoms; R33.8 Other retention of urine; F41.9 Anxiety disorder, unspecified; E66.01 Morbid (severe) obesity due to excess calories; E78.5 Hyperlipidemia, unspecified; I10 Essential (primary) hypertension; F32.A Depression, unspecified; Z20.822 Contact with and (suspected) exposure to COVID-19; Z79.82 Long term (current) use of aspirin; Z79.899 Other long term (current) drug therapy
CPT/HCPCS: 36415; 71045; 80053; 80061; 83036; 84484; 85025; 85027; 85610; 85730; 87635; 93005; 93306; 99285; Q9957